=== PATIENT | male | born 1960 | race Caucasian/White ===

== ENCOUNTER → 2018-06-11 | Outpatient (CLI) | payer BC ==
--- NOTE | 2018-06-15 07:49 | MR ---
EXAMINATION TYPE: MR lumbar spine wo con DATE OF EXAM: 06/11/2018 COMPARISON: None HISTORY: Low Back Pain TECHNIQUE: Multiplanar, multisequence images of the lumbar spine were acquired. L5-S1 designated as lumbosacral junction, last well-formed intervertebral disc space. L1-L2: Broad-based posterior disc bulge causes mild anterior mass effect on thecal sac. No significan t central stenosis or foraminal encroachment. L2-L3: Normal disc appearance without desiccation. No herniation, protrusion or disc bulging. No ca nal stenosis is present. Foramina are patent bilaterally. L3-L4: Posterior broad-based disc bulge causes minimal anterior mass effect on the thecal sac. Facet arthropathy with hypertrophy ligamentum flavum causes some posterior lateral mass effect on the theca l sac. Circumferential disc bulge extends laterally to cause some foraminal encroachment greater on t he right than on the left. No significant central stenosis. L4-L5: Circumferential posterior broad-based disc bulge causes anterior mass effect on the thecal sac . Facet arthropathy is noted with hypertrophic change of the ligamentum flavum causing some posterior lateral mass effect on the thecal sac, trefoil appearance of the thecal sac is noted. Circumferentia l extension of endplate disc complex encroaches on the bilateral foramina. Only mild central stenosis . L5-S1: Minimal posterior broad-based disc bulge is noted, there may be contact with the proximal S1 n erve root to the right of midline. No significant central canal stenosis. No foraminal encroachment. Lumbar segments are intact. No paraspinal masses are identified. Conus medullaris has a normal appe arance. Focus within the L2 vertebral body shows increased signal on T1 and T2 sequences and likely r epresents hemangioma, similar focus present in the inferior aspect of the L1 vertebral body towards t he left of midline and at S1 towards the left of midline. There is multilevel spondylosis. Endplate d iscogenic marrow signal changes are present. Loss of disc height signal is greatest at L4-5 but also present L5-S1 and L1-2, T12-L1, vacuum phenomenon present L4-5. Cortical cysts associated with the ki dneys noted incidentally. Suspect a mild spinal curvature. IMPRESSION: Degenerative disc disease as described greatest at L4-5. Additional findings above.
== END | disposition home or self-care (01) ==
LOC: RADMRIMAIN 21:49
PROVIDERS: ATTEND Family Medicine
DX: M48.061 Spinal stenosis, lumbar region without neurogenic claudication (principal); M51.16 Intervertebral disc disorders with radiculopathy, lumbar region; M47.26 Other spondylosis with radiculopathy, lumbar region; M46.86 Other specified inflammatory spondylopathies, lumbar region; M24.28 Disorder of ligament, vertebrae
CPT/HCPCS: 72148

== ENCOUNTER → 2019-10-25 | Outpatient (CLI) | payer OTHER ==
--- NOTE | 2019-10-25 21:57 | CT ---
EXAMINATION TYPE: CT pelvis w con DATE OF EXAM: 10/25/2019 COMPARISON: None. HISTORY: LLQ PAIN. Left inguinal hernia per order. CT DLP: 463.9 mGycm Automated exposure control for dose reduction was used. CONTRAST: Performed with IV Contrast, patient injected with 100 mL of Isovue 300. FINDINGS: The oral contrast reaches the level of the cecum. There is no suspicious small or large bowel dilatat ion. Diverticula are seen in the sigmoid colon without CT evidence for acute diverticulitis. Normal-a ppearing appendix from the base of cecum noted. Prostate gland is upper limits of normal in size. Uri nary bladder. Within normal limits. No concerning pelvic fluid collection or adenopathy is seen. There is small size right and moderate size left fat-containing inguinal hernias bilaterally. No susp icious groin adenopathy is seen. There is mild to moderate spurring and disc space narrowing L4-L5 and L5-S1 levels. Fairly moderate a xial joint space loss in both hips is present. IMPRESSION: Small size right and moderate-sized left fat containing inguinal hernias.
== END | disposition home or self-care (01) ==
LOC: RADCTMAIN 15:46
PROVIDERS: ATTEND Surgery
DX: K40.90 Unilateral inguinal hernia, without obstruction or gangrene, not specified as recurrent (principal)
CPT/HCPCS: 72193; Q9967

== ENCOUNTER 2019-11-02 09:54 | Day surgery (SDC) | payer BC, OTHER ==
[2019-10-31 16:22] VITALS: BMI 24.4
[~2019-11-02 09:54] MED LIST: DEXAMETHASONE SOD PHOSPHATE 10 MG/ML 1 ML VIAL IV ONE; HEPARIN SODIUM,PORCINE 5,000 UNIT/ML 1 ML VIAL SQ ONE; LIDOCAINE 1% (10MG/ML) FOR IV START INTRADERMA PRN; MIDAZOLAM 2 MG/2 ML VIAL IV PRN; ONDANSETRON 4 MG/2 ML VIAL IVP ONE; SCOPOLAMINE 1.5MG/72HR PATCH TRANSDERM ONE
--- NOTE | 2019-11-02 11:48 | P.GSHP ---
History of Present Illness H&P Date: 11/02/19 Chief Complaint: Bilateral inguinal hernia Is a 59-year-old male who presents today for laparoscopic robotic system repair of bilateral hernias. Patient's vital tender masses in bilateral groins Past Medical History Additional Past Medical History / Comment(s): Jayy inguinal hernia History of Any Multi-Drug Resistant Organisms: None Reported Past Surgical History: Joint Replacement Additional Past Surgical History / Comment(s): Total Lt Knee. Colonoscopy Past Anesthesia/Blood Transfusion Reactions: No Reported Reaction Smoking Status: Current some day smoker - Past Family History Mother Family Medical History: Cancer Medications and Allergies Home Medications Medication Instructions Recorded Confirmed Type Cbd Capsule 1 cap PO DAILY 10/31/19 History Ibuprofen [Motrin Ib] 400 mg PO Q8H PRN 10/31/19 10/31/19 History Multivitamins, Thera [Multivitamin 1 tab PO DAILY 10/31/19 10/31/19 History (formulary)] Allergies Allergy/AdvReac Type Severity Reaction Status Date / Time No Known Allergies Allergy Verified 10/31/19 16:02 Surgical - Exam - General well developed, well nourished, no distress - Eyes PERRL - ENT normal pinna - Neck no masses - Respiratory normal expansion - Cardiovascular Rhythm: regular - Abdomen Abdomen: soft, non tender Hernia: inguinal (Bilateral hernias) Assessment and Plan Assessment: Bilateral inguinal hernias. We'll perform laparoscopic robotic system repair.
[2019-11-02] MEDS: LACTATED RINGERS 1,000 ML IV SCH ×3 (11:51→15:45)
[2019-11-02] MEDS ORDERED: fentaNYL (PF) 50 MCG/ML 2 ML AMP IVP ONE (11:59)
[2019-11-02] MEDS ORDERED: HYDROmorphone (PF) 1 MG/ML ONE (12:08)
[2019-11-02] MEDS ORDERED: KETAMINE 10 MG/ML 20 ML VIAL ONE (12:08)
[2019-11-02] MEDS ORDERED: NEOSTIGMINE 1 MG/ML 10 ML VIAL ONE (12:08)
[2019-11-02] MEDS ORDERED: LIDOCAINE 1% INJ 10MG/ML (20 ML MDV) ONE (12:08)
[2019-11-02] MEDS ORDERED: ROPIVACAINE 5 MG/ML 30 ML VIAL ONE (12:08)
[2019-11-02] MEDS ORDERED: GLYCOPYRROLATE 0.2 MG/ML 2 ML VIAL ONE (12:08)
[2019-11-02] MEDS ORDERED: PROPOFOL 10 MG/ML 20 ML VIAL IV ONE (12:08)
[2019-11-02] MEDS ORDERED: ROCURONIUM BROMIDE 10 MG/ML 5 ML VIAL IV ONE (12:08)
[2019-11-02] MEDS ORDERED: DEXAMETHASONE SOD PHOSPHATE 4 MG/ML 1 ML VIAL ONE (12:08)
[2019-11-02] MEDS ORDERED: BUPIVACAINE (PF) 0.25% 30 ML VIAL SQ ONE (12:09)
--- NOTE | 2019-11-02 13:32 | P.OP ---
Date of Procedure: 11/02/19 Preoperative Diagnosis: Bilateral inguinal hernia Postoperative Diagnosis: Bilateral inguinal hernia Procedure(s) Performed: Laparoscopic possible pair of bilateral hernia Excision of bilateral cord lipoma Anesthesia: KEZIA Surgeon: Fred Nichols Pathology: other (Bilateral cord lipoma) Condition: stable Disposition: PACU Description of Procedure: The patient's placed on the operating table in the supine position. The patient received general anesthesia. The patient's abdomen was prepped and draped in usual sterile fashion. The skin was anesthetized 1% local Xylocaine at the incision sites. Using an 11 blade a skin incision was made at the umbilicus. The fascia was grasped with a Delgado and then the peritoneal cavity was entered with the Veress needle. Position of the Veress needle was confirmed with a positive drop test. After adequate insufflation a 5 mm trocar was placed into the peritoneal cavity. The Laparoscope was placed the peritoneal cavity. And a robotic 8 mm trocar was placed in the right lateral position and then another 8 mm robotic trochars placed in the left lateral position. The original 5 mm trocar was exchanged for a 12 mm trocar. The patient was placed in reverse Trendelenburg and then the patient was docked to the robot. Next the peritoneum over top of the right inguinal hernia was incised and then using blunt and sharp dissection and electrocautery the hernia sac was dissected free from the floor of the inguinal canal. The cord lipoma was dissected free from the cord and sent to pathology The hernia sac was completely reduced into the peritoneal cavity. And then using the Pro boring machine operator double end mesh the hernia was repaired. The peritoneum was then sutured with 20V lock suture. Next the peritoneum over top of the left inguinal hernia was incised and then using blunt and sharp dissection and electrocautery the hernia sac was dissected free from the floor of the inguinal canal. The cord lipoma was dissected free and sent to pathology The hernia sac was completely reduced into the peritoneal cavity. And then using the Pro boring machine operator double end mesh the hernia was repaired. The peritoneum was then sutured with 20V lock suture. The patient was then undocked the robot. The needle was withdrawn from the peritoneal cavity. The umbilical trocar site was closed with 0 Ethibond suture. The skin was closed interrupted 3-0 Monocryl suture. Dermabond dressing was applied. Patient was sent to recovery in stable condition.
[2019-11-02 13:41] VITALS: TEMP 97
[2019-11-02] MEDS: HYDROmorphone 0.5 MG/0.5 ML SYRINGE IVP PRN ×2 (14:11→14:21)
--- NOTE | 2019-11-02 14:22 | P.ANPRN ---
Procedure Note - Anesthesia - Nerve Block Performed Bilateral Transversus Abdominis Single Time Out Performed: Yes Date of Procedure: 11/02/19 Procedure Start Time: 12:00 Procedure Stop Time: 12:10 Location of Patient: PreOp Indication: Acute Post-Operative Pain, Dx/Pain Location, Requested by Surgeon Sedation Type: Sedate with meaningful contact maintained Preparation: Sterile Prep Position: Supine Catheter: None Needle Types: Pajunk Needle Gauge: 21 Ultrasound used to visualize needle placement: Yes Ultrasound used to observe medication spread: Yes Injectate: 0.5% Ropivacaine (see comment for volume) (20ml each side) Blood Aspirated: No Pain Paresthesia on Injection Noted: No Resistance on Injection: Normal Image Stored and Saved: Yes Events: Uneventful and Well Tolerated
[2019-11-02] MEDS ORDERED: HYDROcodone/APAP 5-325MG 1 EACH TAB PO ONE (15:25)
[2019-11-02 15:36] VITALS: BP 144/89; PULSE 72; RESP 16
== END 2019-11-02 17:07 | disposition home or self-care (01) ==
LOC: OR 09:54
PROVIDERS: ATTEND Surgery
DX: K40.20 Bilateral inguinal hernia, without obstruction or gangrene, not specified as recurrent (principal); D17.6 Benign lipomatous neoplasm of spermatic cord; Z96.652 Presence of left artificial knee joint; F17.200 Nicotine dependence, unspecified, uncomplicated; Z79.1 Long term (current) use of non-steroidal anti-inflammatories (NSAID)
CPT/HCPCS: 49650; 64488; 88304; C1781; J2250; J1644; J1100 ×2; J2710; J0690; J2405; J2001; J3010; J1170 ×2; J2795; J2704

== ENCOUNTER 2020-05-31 07:03 | Day surgery (SDC) | payer BC ==
[~2020-05-31 07:03] MED LIST changes: -DEXAMETHASONE SOD PHOSPHATE 10 MG/ML 1 ML VIAL IV ONE; -HEPARIN SODIUM,PORCINE 5,000 UNIT/ML 1 ML VIAL SQ ONE; +LACTATED RINGERS 1,000 ML IV SCH; -MIDAZOLAM 2 MG/2 ML VIAL IV PRN; -ONDANSETRON 4 MG/2 ML VIAL IVP ONE; -SCOPOLAMINE 1.5MG/72HR PATCH TRANSDERM ONE
[2020-05-31 07:27] VITALS: RESP 16; TEMP 96.9
[2020-05-31] MEDS ORDERED: LIDOCAINE 1% INJ 10MG/ML (20 ML MDV) ONE (08:08)
[2020-05-31] MEDS ORDERED: PROPOFOL 10 MG/ML 20 ML VIAL IV ONE (08:08)
--- NOTE | 2020-05-31 08:49 | P.PCN ---
Date of Procedure: 05/31/20 Description of Procedure: BRIEF HISTORY: Patient is a 60-year-old male presenting for outpatient colonoscopy for follow- up after positive Cologard/colorectal. Patient reports colonoscopy at the age of 43. Denies any change in bowel habits, blood per rectum or abdominal pain. PROCEDURE PERFORMED: Colonoscopy with polypectomy. PREOPERATIVE DIAGNOSIS: Positive Cologard/colorectal, last colonoscopy at the age of 43 patient reports. ESTIMATED BLOOD LOSS: Minimal. IV sedation per Anesthesia. PROCEDURE: After informed consent was obtained, the patient, was brought into the endoscopy unit. IV sedation was administered by Anesthesia under continuous monitoring. Digital rectal examination was normal. Initially the Olympus CF-190 flexible video colonoscope was then inserted in the rectum, gradually advanced into the cecum without any difficulty. Careful examination was performed as the scope was gradually being withdrawn. Ileocecal valve and the appendiceal orifice were visualized and appeared normal. Prep was excellent. Mucosa of the cecum, ascending colon, transverse colon, descending colon, sigmoid colon, and rectum appeared normal. 4 diminutive polyps measuring 2-3 mm in size removed from the ascending colon, transverse colon, descending colon and rectum with cold forcep polypectomy. 5 mm sigmoid colon polyp removed with cold snare polypectomy. A few scattered diverticula noted in the sigmoid colon. Retroflexion was performed in the rectum and no lesions were seen. The patient tolerated the procedure well. IMPRESSION: 4 diminutive polyps removed with cold forcep polypectomy from the ascending colon, transverse colon, descending colon and rectum. Sigmoid colon polyp removed with cold snare polypectomy. Mild sigmoid diverticulosis. RECOMMENDATIONS: Findings of this examination were discussed with the patient his son. Okay to resume diet. Okay to resume medications. Await pathology from polypectomies. Would recommend repeat colonoscopy in 5 years for colon polyps pending pathology from polypectomy.
[2020-05-31 09:07] VITALS: BP 121/80; PULSE 50
== END 2020-05-31 09:14 ==
LOC: ORWHC2ENDO 07:03
PROVIDERS: ATTEND Internal Medicine
DX: D12.8 Benign neoplasm of rectum (principal); K63.5 Polyp of colon; K57.30 Diverticulosis of large intestine without perforation or abscess without bleeding; F17.290 Nicotine dependence, other tobacco product, uncomplicated; Z96.652 Presence of left artificial knee joint; Z98.890 Other specified postprocedural states; Z97.2 Presence of dental prosthetic device (complete) (partial); Z79.1 Long term (current) use of non-steroidal anti-inflammatories (NSAID)
CPT/HCPCS: 88305; 45380; 45385; J2001; J2704

== ENCOUNTER → 2024-07-26 | Outpatient (CLI) | payer MEDICARE ==
--- NOTE | 2024-07-26 13:13 | US ---
EXAMINATION TYPE: US carotid duplex BILAT DATE OF EXAM: 07/26/2024 COMPARISON: NONE CLINICAL INDICATION: Male, 64 years old with history of [id number] BENIGN PAROXYSMAL VERTIGO, UNSPECIFIED EAR; Vertigo Additional History: .... TECHNIQUE: Grayscale, color Doppler and spectral Doppler evaluation of the bilateral carotid systems and vertebral arteries. Indirect Doppler criteria was utilized. FINDINGS: EXAM MEASUREMENTS: RIGHT: Peak Systolic Velocity (PSV) cm/sec ----- Right CCA: 64.8 ----- Right ICA: 79.3 ----- Right ECA: 75 ICA/CCA ratio: 1.2 RIGHT: End Diastole cm/sec ----- Right CCA: 24.1 ----- Right ICA: 22.7 ----- Right ECA: 21.2 LEFT: Peak Systolic Velocity (PSV) cm/sec ----- Left CCA: 74.8 ----- Left ICA: 88.1 ----- Left ECA: 32.5 ICA/CCA ratio: 1.2 LEFT: End Diastole cm/sec ----- Left CCA: 24.6 ----- Left ICA: 23.3 ----- Left ECA: 14 VERTEBRALS (direction of flow): Right Vertebral: Antegrade Left Vertebral: Antegrade Rhythm: Normal WOOD [employer] NOTES: No significant stenosis seen Color Doppler imaging shows patency with blood flow throughout the carotid artery. Spectral waveforms are within normal limits. IMPRESSION: No ultrasound evidence for hemodynamically significant stenosis of the bilateral visualized carotid a rterial systems. Criteria for Assigning % of Stenosis / Diameter reduction (Estimation based on the indirect measurements of the internal carotid artery velocities (ICA PSV). 1. Normal (no stenosis)=ICA PSV < 125 cm/s: ratio < 2.0: ICA EDV<40 cm/s. 2. Less than 50% stenosis=ICA PSV < 125 cm/s: ratio < 2.0: ICA EDV<40 cm/s. 3. 50 to 69% stenosis=ICA PSV of 125 to 230 cm/s: ration 2.0 ? 4.0: ICA EDV 40-100 cm/s. 4. Greater than 70% stenosis to near occlusion= ICA PSV > 230 cm/s: ratio > 4.0: ICA EDV > 100 cm/s. 5. Near occlusion= ICA PSV velocities may be low or undetectable: variable ratio and ICA EDV. 6. Total occlusion=unable to detect flow. [facility], , 07/26/2024 1:10 PM
== END | disposition home or self-care (01) ==
LOC: RADUSWWP 12:36
PROVIDERS: ATTEND Family Medicine
DX: H81.10 Benign paroxysmal vertigo, unspecified ear (principal)
CPT/HCPCS: 93880